=== PATIENT | male | born 1960 | race Caucasian/White ===

== ENCOUNTER 2017-01-29 09:15 | Outpatient (RCR) | payer OTHER ==
[~2017-01-29 09:15] MED LIST: CEPHALEXIN500 M1 PO; NO HOME MEDICATIONS
== END 2017-03-04 | disposition home or self-care (01) ==
LOC: WSST
DX: F80.2 Mixed receptive-expressive language disorder (principal)

== ENCOUNTER 2017-04-01 14:28 | Emergency (ER) | payer OTHER ==
[~2017-04-01] VITALS: Ht 177.8 cm; Wt 81.8 kg
[2017-04-01 14:32] VITALS: BP 155/84; PULSE 80; TEMP 98.1
[2017-04-01] MEDS ORDERED: CELEXA10 MG PO (15:10)
[2017-04-01] MEDS ORDERED: PROSCAR 5MG5 MG PO (15:10)
[2017-04-01] MEDS ORDERED: NORCO 325 MG-51 TAB PO (16:12)
[2017-04-01] MEDS ORDERED: INDOCIN 25MG CA25 MG PO (16:12)
== END 2017-04-01 16:34 | disposition home or self-care (01) ==
LOC: COL.ER 14:28
DX: S90.32XA Contusion of left foot, initial encounter (principal); W22.8XXA Striking against or struck by other objects, initial encounter; Y92.009 Unspecified place in unspecified non-institutional (private) residence as the place of occurrence of the external cause; I10 Essential (primary) hypertension

== ENCOUNTER 2017-05-16 09:30 | Outpatient (RCR) | payer OTHER ==
[~2017-05-16 09:30] MED LIST changes: +CELEXA10 MG PO; +INDOCIN 25MG CA25 MG PO; +NORCO 325 MG-51 TAB PO; +PROSCAR 5MG5 MG PO
== END 2017-06-03 | disposition home or self-care (01) ==
LOC: WSST
DX: F80.2 Mixed receptive-expressive language disorder (principal)

== ENCOUNTER 2017-07-08 19:50 | Emergency (ER) | payer OTHER ==
[~2017-07-08] VITALS: Ht 177.8 cm; Wt 84.1 kg
[2017-07-08 19:56] VITALS: BP 182/102; TEMP 97.7
[2017-07-08] MEDS ORDERED: PREDNISONE20 MG PO (20:27)
[2017-07-08 20:39] VITALS: PULSE 93
== END 2017-07-08 20:40 | disposition home or self-care (01) ==
LOC: COL.ER 19:50
DX: L23.7 Allergic contact dermatitis due to plants, except food (principal); N40.0 Benign prostatic hyperplasia without lower urinary tract symptoms
CPT/HCPCS: J7512

== ENCOUNTER 2017-08-21 12:30 | Outpatient (RCR) | payer OTHER ==
[~2017-08-21 12:30] MED LIST changes: +PREDNISONE20 MG PO
[2017-08-29] MEDS ORDERED: FOLIC ACID 11 MG/TA1 PO (21:53)
[2017-08-29] MEDS ORDERED: WELLBUTRIN XL150 MG PO (21:53)
[2017-08-29] MEDS ORDERED: NAPROSYN500 MG PO (23:37)
[2017-08-29] MEDS ORDERED: NORCO 325 MG-51 TAB PO (23:37)
== END 2017-09-02 | disposition still patient (30) ==
LOC: WSST
DX: F80.2 Mixed receptive-expressive language disorder (principal)

== ENCOUNTER 2017-08-29 21:43 | Emergency (ER) | payer OTHER ==
[~2017-08-29] VITALS: Ht 177.8 cm; Wt 84.1 kg
[2017-08-29 21:45] VITALS: TEMP 98.5
[2017-08-29] MEDS ORDERED: WELLBUTRIN XL150 MG PO (21:53)
[2017-08-29] MEDS ORDERED: FOLIC ACID 11 MG/TA1 PO (21:53)
[2017-08-29 22:22] LABS: BASO # 0.1 (0.0-0.2); BASO % 0.6 % (0.0-2.0); EOS # 0.1 (0.0-0.7); EOS % 1.4 % (0-4.0); GRAN # 6.7 (1.4-6.5); GRAN % 68.8 % (42.2-75.2); HEMATOCRIT 46.1 % (42.0-52.0); HEMOGLOBIN 17.2 g/dl (13.5-18.0); LYMPH # 2.1 (1.2-3.4); LYMPH % 21.2 % (20.0-51.0); MEAN CELL VOLUME 90 fl (80.0-100.0); MEAN CORPUSCULAR HEMOGLOBIN 34 pg (27.0-31.0); MEAN CORPUSCULAR HGB CONC 37 g/dl (33.0-37.0); MEAN PLATELET VOLUME 10.3 fl (7.4-10.4); MONO # 0.8 (0.1-0.6); MONO % 7.7 % (1.7-9.3); PLATELET COUNT 132 K/mm3 (130-400); RED BLOOD COUNT 5.14 M/mm3 (4.20-5.60); WHITE BLOOD COUNT 9.7 K/mm3 (4.8-10.8)
[2017-08-29 22:33] LABS: ADJUSTED CALCIUM 8.9 mg/dL (8.4-10.2); ALBUMIN 4.7 gm/dL (3.5-5.0); BILIRUBIN,TOTAL 0.7 mg/dL (0.0-1.0); CALCIUM 9.5 mg/dL (8.4-10.2); CREATININE, serum 1.03 mg/dL (0.66-1.25); TOTAL PROTEIN 7.5 gm/dL (6.4-8.2)
[2017-08-29 23:25] LABS: COLLECTION METHOD CLEAN CATCH
[2017-08-29 23:30] LABS: MUCOUS Present /lpf; PH 6 (5-8); SQUAMOUS EPITHELIAL 0-2 /hpf; URINE APPEARANCE Clear; URINE BACTERIA None Seen /hpf; URINE BILIRUBIN Negative (NEGATIVE); URINE BLOOD Negative (NEGATIVE); URINE COLOR Yellow; URINE GLUCOSE Negative (NEGATIVE); URINE KETONE Negative (NEGATIVE); URINE LEUKOCYTE ESTERASE Negative (NEGATIVE); URINE PROTEIN(semi-quant) Negative (NEGATIVE); URINE RBC 0-2 /hpf; URINE UROBILINOGEN >=4.0 mg/dL (NEGATIVE); URINE WBC 0-2 /hpf
[2017-08-29] MEDS ORDERED: NAPROSYN500 MG PO (23:37)
[2017-08-29] MEDS ORDERED: NORCO 325 MG-51 TAB PO (23:37)
[2017-08-30 00:10] VITALS: BP 145/104; PULSE 74
== END 2017-08-30 00:09 | disposition home or self-care (01) ==
LOC: COL.ER 21:43
PROVIDERS: Emergency Medicine
DX: S20.221A Contusion of right back wall of thorax, initial encounter (principal); W01.0XXA Fall on same level from slipping, tripping and stumbling without subsequent striking against object, initial encounter; Y92.009 Unspecified place in unspecified non-institutional (private) residence as the place of occurrence of the external cause
CPT/HCPCS: J1170; J1885; J2405

== ENCOUNTER 2017-10-10 14:28 | Emergency (ER) | payer OTHER ==
[~2017-10-10] VITALS: Ht 177.8 cm; Wt 79.5 kg
[~2017-10-10 14:28] MED LIST changes: +FOLIC ACID 11 MG/TA1 PO; +NAPROSYN500 MG PO; +WELLBUTRIN XL150 MG PO
[2017-10-10 14:30] VITALS: BP 149/103; TEMP 99
[2017-10-10 17:40] LABS: COLLECTION METHOD CLEAN CATCH
[2017-10-10 17:43] LABS: BASO # 0.1 (0.0-0.2); BASO % 0.6 % (0.0-2.0); EOS # 0.1 (0.0-0.7); GRAN # 7.4 (1.4-6.5); GRAN % 70.3 % (42.2-75.2); HEMATOCRIT 48.1 % (42.0-52.0); HEMOGLOBIN 17.6 g/dl (13.5-18.0); LYMPH # 2.2 (1.2-3.4); LYMPH % 20.7 % (20.0-51.0); MEAN CELL VOLUME 89 fl (80.0-100.0); MEAN CORPUSCULAR HEMOGLOBIN 32 pg (27.0-31.0); MEAN CORPUSCULAR HGB CONC 37 g/dl (33.0-37.0); MEAN PLATELET VOLUME 10.2 fl (7.4-10.4); MONO # 0.7 (0.1-0.6); MONO % 7.1 % (1.7-9.3); PLATELET COUNT 130 K/mm3 (130-400); RED BLOOD COUNT 5.43 M/mm3 (4.20-5.60); REDCELL DISTRIBUTION WIDTH-CV 11.4 % (11.5-14.5)
[2017-10-10 17:47] LABS: MUCOUS Present /lpf; PH 6 (5-8); SQUAMOUS EPITHELIAL 0-2 /hpf; URINE APPEARANCE Clear; URINE BACTERIA None Seen /hpf; URINE BILIRUBIN Negative (NEGATIVE); URINE BLOOD Negative (NEGATIVE); URINE COLOR Yellow; URINE GLUCOSE Negative (NEGATIVE); URINE KETONE Negative (NEGATIVE); URINE LEUKOCYTE ESTERASE Negative (NEGATIVE); URINE NITRATE Negative (NEGATIVE); URINE PROTEIN(semi-quant) Negative (NEGATIVE); URINE RBC 0-2 /hpf; URINE UROBILINOGEN Negative (NEGATIVE)
[2017-10-10 17:55] LABS: ALANINE AMINOTRANSFERASE 33 U/L (21-72); ALBUMIN 5.2 gm/dL (3.5-5.0); ALKALINE PHOSPHATASE 130 U/L (50-136); ANION GAP 11 mmol/L (7-16); AST,SGOT 27 U/L (15-37); BILIRUBIN,TOTAL 1.5 mg/dL (0.0-1.0); BLOOD UREA NITROGEN 16 mg/dL (9-20); CALCIUM 10.1 mg/dL (8.4-10.2); CARBON DIOXIDE 30 mmol/L (22-30); CHLORIDE 98 mmol/L (98-107); CREATININE, serum 0.85 mg/dL (0.66-1.25); GLUCOSE 115 mg/dL (74-106); POTASSIUM 4.6 mmol/L (3.4-5.0); SODIUM 139 mmol/L (137-145); TOTAL PROTEIN 8.4 gm/dL (6.4-8.2)
[2017-10-10 18:05] LABS: TROPONIN-I < 0.012 ng/mL (0.000-0.034)
[2017-10-10] MEDS ORDERED: FLEXERIL 1010 MG/TAB PO (18:17)
[2017-10-10 18:49] VITALS: PULSE 82
== END 2017-10-10 18:50 | disposition home or self-care (01) ==
LOC: COL.ER 14:28
PROVIDERS: Nurse Practitioner
DX: M54.6 Pain in thoracic spine (principal); I10 Essential (primary) hypertension; M54.5 Low back pain; G89.29 Other chronic pain; F41.9 Anxiety disorder, unspecified
CPT/HCPCS: J1170

== ENCOUNTER 2021-01-26 00:20 | Emergency (ER) | payer OTHER ==
[~2021-01-26] VITALS: Ht 175.3 cm; Wt 81.8 kg
[~2021-01-26 00:20] MED LIST changes: +FLEXERIL 1010 MG/TAB PO
[2021-01-26 00:28] VITALS: TEMP 98.4
[2021-01-26 00:56] LABS: COLLECTION METHOD IN
[2021-01-26 01:20] LABS: PH 6 (5-8); SQUAMOUS EPITHELIAL None Seen /hpf; URINE APPEARANCE Clear; URINE BACTERIA None Seen /hpf; URINE BILIRUBIN Negative (NEGATIVE); URINE BLOOD 1+ (NEGATIVE); URINE COLOR Yellow; URINE GLUCOSE Negative (NEGATIVE); URINE KETONE Negative (NEGATIVE); URINE LEUKOCYTE ESTERASE Negative (NEGATIVE); URINE NITRATE Negative (NEGATIVE); URINE PROTEIN(semi-quant) Negative (NEGATIVE); URINE RBC None Seen /hpf; URINE UROBILINOGEN Negative (NEGATIVE)
[2021-01-26 01:28] VITALS: BP 154/78; PULSE 78
== END 2021-01-26 01:28 | disposition home or self-care (01) ==
LOC: COL.ER 00:20
PROVIDERS: Emergency Medicine
DX: R33.9 Retention of urine, unspecified (principal); F41.9 Anxiety disorder, unspecified